=== PATIENT | female | born 1995 | race Caucasian/White ===

== ENCOUNTER 2018-04-08 09:47 | Emergency (ER) | payer BC ==
[2018-04-08] MEDS ORDERED: ACETAMINOPHEN 500 MG TAB PO ONE (11:44)
[2018-04-08] MEDS ORDERED: IBUPROFEN 600 MG TAB PO ONE (11:44)
--- NOTE | 2018-04-08 13:02 | EDPHY ---
H & P Time Seen by Provider: 04/08/18 11:20 HPI/ROS: CHIEF COMPLAINT: Headache, visual complaints, confusion, vomiting HISTORY OF PRESENT ILLNESS: 22-year-old female presents emergency department reporting that 7 days ago, well drinking alcohol, she fell backwards striking the left occiput and then fell forward striking her left forehead. No known loss of consciousness. Patient reports she felt relatively well other than having a headache for the next several days. However, she has since noticed intermittent episodes of confusion, forgetting what she was trying to do, inability to speak correctly, headache, and vomiting this morning. She also notes double vision yesterday, blurred vision today, feels like there is pressure behind her right eye. No seizure. No sinusitis symptoms although the patient does report she is recovering from bronchitis. She did have some diarrhea today with her vomiting. REVIEW OF SYSTEMS: A comprehensive 10 system review of systems was reviewed and is otherwise negative aside from elements mentioned in the history of present illness and medical decision making. PAST MEDICAL HISTORY: Patient denies other than concussions when she was younger. SOCIAL HISTORY: Here with a roommate. Does drink alcohol. Nonsmoker. VITAL SIGNS Reviewed by me. GENERAL: Well-developed, well-nourished, alert, conversant. HEENT: Hematoma palpable over the left occiput. Small hematoma of left forehead. Eyes: PERRL, EOMI, no nystagmus. No icterus. No injection. Mouth : moist mucous membranes. No erythema or lesions. Neck: No meningitis. Nontender to palpation. No adenopathy. LUNGS: Clear to auscultation bilaterally, no wheezes, rhonchi or rales. CARDIAC: Regular rate and rhythm, no rubs, murmurs or gallops. ABDOMEN: Soft, nontender, nondistended, bowel sounds normal. BACK: No CVA tenderness. EXTREMITIES: No trauma. No edema. Range of motion is normal throughout. NEURO: Alert and oriented, cranial nerves II through XII are intact. Motor strength 5 over 5 in all major muscle groups. Sensation intact to light touch. Normal gait. SKIN: Warm and dry, no rash. PSYCHIATRIC: Normal mentation, no agitation. Smoking Status: Current every day smoker Constitutional: Initial Vital Signs Temperature (C) 36.9 C 04/08/18 09:56 Heart Rate 82 04/08/18 09:56 Respiratory Rate 16 02/14/19 09:56 Blood Pressure 129/84 H 04/08/18 09:56 O2 Sat (%) 98 04/08/18 09:56 O2 Delivery Mode Room Air Allergies/Adverse Reactions: No Known Allergies Allergy (Unverified 04/08/18 09:54) Home Medications: Medication Instructions Recorded Albuterol Sulfate 04/08/18 Medical Decision Making - Diagnostics Imaging Results: Imaging Impressions Head CT 04/08/18 11:44 Impression: 1. Normal CT brain without contrast. 2. No skull fracture. Findings and recommendations discussed with Emergency Department physician, Aracelis Carlin MD, at 1325 hour, 04/08/2018. Final report concurs with initial preliminary interpretation. ED Course/Re-evaluation: 22-year-old female presenting to the emergency department with symptoms consistent with concussion. Patient did have a significant head injury about 6 days ago and now presents with worsening headache, vomiting today word-finding difficulty, some confusion, and blurred and double vision. CT scan the head is negative for any acute findings. Specifically, no retro- orbital hematoma is identified, no basilar skull fracture. No signs of sinusitis. Patient was reassured with the CT findings and was discharged to follow up with Dr. Barnard. Please see the discharge instructions. Differential Diagnosis: Differential diagnosis for the patient's head injury was considered including but not limited to concussion, skull fracture, intraparenchymal contusion, subarachnoid, subdural and epidural hematoma. - Data Points Medications Given: Discontinued Medications Acetaminophen (Tylenol) 1,000 mg PO EDNOW ONE Stop: 04/08/18 11:45 Last Admin: 04/08/18 12:00 Dose: 1,000 mg Ibuprofen (Motrin) 600 mg PO EDNOW ONE Stop: 04/08/18 11:45 Last Admin: 04/08/18 12:00 Dose: 600 mg Departure - Departure Disposition: Home, Routine, Self-Care Clinical Impression: Concussion Qualifiers: Encounter type: initial encounter Loss of consciousness presence/duration: without LOC Qualified Code(s): S06.0X0A - Concussion without loss of consciousness, initial encounter Condition: Good Instructions: Concussion (ED), Post Concussion Syndrome (ED) Additional Instructions: Please use Tylenol or ibuprofen as needed for any recurrent headaches. Ibuprofen may be a better choice as it has anti-inflammatory effects. Please follow up with Dr. Barnard if you continue to have memory difficulties , vomiting, headaches. It is important to limit your screen time and provide your brain some rest especially if this causes you to have increased symptoms of headaches. Referrals: [facility] BOTELLO [Other] - As per Instructions Nimco Barnard MD [Medical Doctor] - As per Instructions Stand Alone Forms: School Excuse
[2018-04-08 13:43] VITALS: BP 108/83
== END 2018-04-08 13:43 | disposition home or self-care (01) ==
DX: S06.0X0A Concussion without loss of consciousness, initial encounter (principal); W19.XXXA Unspecified fall, initial encounter; Y92.9 Unspecified place or not applicable; Y99.9 Unspecified external cause status; Y93.9 Activity, unspecified